=== PATIENT | female | born 1945 | race Caucasian/White ===

== ENCOUNTER 2024-08-10 17:37 | Emergency (ER) | payer MEDICARE, OTHER ==
[2024-08-10 18:12] LABS: HEMATOCRIT 37.2 % (36.0-47.0); HEMOGLOBIN 12.2 g/dl (12.0-15.5); MEAN CORPUSCULAR HEMOGLOBIN 30.3 pg (27.0-33.0); MEAN CORPUSCULAR HGB CONC 32.8 g/dl (32.0-36.5); MEAN CORPUSCULAR VOLUME 92.3 fl (80.0-96.0); PLATELET COUNT, AUTOMATED 213 10^3/uL (150-450); RED BLOOD COUNT 4.03 10^6/uL (4.00-5.40)
[2024-08-10 18:27] LABS: INR 1.02; PARTIAL THROMBOPLASTIN TIME 23.1 SECONDS (24.8-34.2); PROTHROMBIN TIME 13.7 SECONDS (12.5-14.5)
[2024-08-10] MEDS: niCARdipine IV 40 MG in IV 1 EA IV SCH (18:50)
== END 2024-08-10 19:15 | disposition short-term general hospital (02) ==
LOC: EDBD → M ED 17:37 → EDBD 17:37 → M ED 19:15
DX: I61.9 Nontraumatic intracerebral hemorrhage, unspecified (principal); E04.1 Nontoxic single thyroid nodule; I45.81 Long QT syndrome; E78.5 Hyperlipidemia, unspecified; F03.90 Unspecified dementia, unspecified severity, without behavioral disturbance, psychotic disturbance, mood disturbance, and anxiety